=== PATIENT | female | born 1945 | race Two or more races ===

== ENCOUNTER 2021-06-30 10:34 | Emergency (ER) | payer MEDICARE ==
[~2021-06-30] VITALS: Ht 157.5 cm; Wt 70.3 kg
--- NOTE | 2021-06-30 10:54 | NUR ---
DR FAROOQ AT BEDSIDE
[2021-06-30 11:23] LABS: BASOPHILS % (AUTO) 0.5 % (0.0-2.0); EOSINOPHILS % (AUTO) 1.1 % (0.0-6.0); HEMATOCRIT 38 % (33-45); HEMOGLOBIN 12.9 g/dL (11.5-14.8); LYMPHOCYTES % (AUTO) 10.9 % (20.0-44.0); MEAN CORPUSCULAR HGB CONC 34 g/dl (31.0-36.0); MEAN CORPUSCULAR VOLUME 86 fL (82-100); MONOCYTES # (AUTO) 0.5 K/uL (0.1-1.30); MONOCYTES % (AUTO) 5.5 % (2.0-12.0); NEUTROPHILS # (AUTO) 7.2 K/uL (1.8-8.9); PLATELET COUNT (AUTO) 159 K/uL (150-450); RED BLOOD CELL COUNT(AUTO) 4.48 MIL/uL (4.0-5.2); WHITE BLOOD COUNT (AUTO) 8.8 K/uL (4.3-11.0)
[2021-06-30 12:08] LABS: CALCIUM, SERUM 9.8 mg/dL (8.5-10.1); CREATININE 0.6 mg/dL (0.6-1.3); POTASSIUM 3.2 mmol/L (3.5-5.1)
[2021-06-30] MEDS ORDERED: IOHEXOL-350 100 ML VIAL IV ONE (12:26)
[2021-06-30] MEDS ORDERED: IV NS 0.9% 250 ML IV ONE (12:26)
--- NOTE | 2021-06-30 13:05 | NUR ---
WHEELED OUT VIA [facility] FOR CTA
[2021-06-30] MEDS ORDERED: IBUP-1955 PO ×3 (13:49→14:02)
[2021-06-30] MEDS ORDERED: CYCL5TAB PO ×3 (13:49→14:02)
--- NOTE | 2021-06-30 14:06 | NUR ---
IV removed. Catheter intact and site benign. Pressure and 4x4 applied to site. No bleeding noted.Patient discharged to home in stable condition. Written and verbal after care instructions given. Patient verbalizes understanding of instruction.
[2021-06-30 14:08] VITALS: BP 148/88
== END 2021-06-30 14:52 | disposition home or self-care (01) ==
LOC: EDUNIT# 10:34 → ER 10:39
DX: S16.1XXA Strain of muscle, fascia and tendon at neck level, initial encounter (principal); I10 Essential (primary) hypertension; Z85.3 Personal history of malignant neoplasm of breast; Z90.13 Acquired absence of bilateral breasts and nipples; Z88.0 Allergy status to penicillin; X58.XXXA Exposure to other specified factors, initial encounter; Y93.89 Activity, other specified; Y92.89 Other specified places as the place of occurrence of the external cause; Y99.8 Other external cause status
CPT/HCPCS: 36415; 70498; 72125; 80048; 85025; 99285; J7050; Q9967